=== PATIENT | female | born 1945 | race Caucasian/White ===

== ENCOUNTER → 2021-03-03 | Outpatient (REF) | payer MEDICARE, OTHER ==
[2021-03-03 14:00] LABS: SOURCE, BODY FLUID RT KNEE; SYNOVIAL FLUID COLOR RED (COLORLESS)
[2021-03-03 14:18] LABS: SOURCE, BODY FLUID GLUCOSE RT KNEE
[2021-03-03 14:27] LABS: BODY FLUID RHEUMATOID SCREEN NEGATIVE (NEGATIVE); MUCIN CLOT TEST NO CLOT (4+)
[2021-03-03 14:29] LABS: CRYSTALS, BODY FLUID NONE SEEN (NONE SEEN); SOURCE, BODY FLUID CRYSTALS RT KNEE
== END ==
LOC: M LAB REF 13:11
PROVIDERS: ATTEND Orthopaedic Surgery
DX: M25.461 Effusion, right knee (principal)

== ENCOUNTER 2024-12-07 14:44 | Inpatient (IN) | payer MEDICARE, OTHER ==
[~2024-12-07] VITALS: Ht 154.9 cm; Wt 86.4 kg
[2024-12-07] MEDS ORDERED: LEVO50TA5 PO (15:00)
[2024-12-07] MEDS ORDERED: ALPR0.5T3 PO (15:00)
[2024-12-07] MEDS ORDERED: TRIA75TA10 PO (15:00)
[2024-12-07] MEDS ORDERED: SIMV40TA20 PO (15:00)
[2024-12-07] MEDS ORDERED: POTA-151 PO (15:00)
[2024-12-07] MEDS ORDERED: MECL-86 PO (15:00)
[2024-12-07] MEDS ORDERED: ONDA-282 PO (15:00)
[2024-12-07 15:46] LABS: HEMATOCRIT 44.1 % (36.0-47.0); HEMOGLOBIN 14.7 g/dl (12.0-15.5); MEAN CORPUSCULAR HEMOGLOBIN 30.1 pg (27.0-33.0); MEAN CORPUSCULAR HGB CONC 33.3 g/dl (32.0-36.5); MEAN CORPUSCULAR VOLUME 90.2 fl (80.0-96.0); PLATELET COUNT, AUTOMATED 158 10^3/uL (150-450); RED BLOOD COUNT 4.89 10^6/uL (4.00-5.40); WHITE BLOOD COUNT 9.2 10^3/uL (4.0-10.0)
[2024-12-07 16:12] LABS: CALCIUM LEVEL 9.8 MG/DL (8.3-10.6); CREATININE FOR GFR 0.89 MG/DL (0.55-1.30); GLOMERULAR FILTRATION RATE 65.1 (>32); MAGNESIUM LEVEL 1.7 MG/DL (1.8-2.4); POTASSIUM SERUM 4.3 MMOL/L (3.5-5.1)
[2024-12-07 16:14] LABS: THYROID STIMULATING HORMONE 5.681 uIU/ML (0.55-4.78)
[2024-12-07 16:15] LABS: FREE T4 1.43 NG/DL (0.89-1.76)
[2024-12-07] MEDS ORDERED: hydrALAZINE 20MG/ML 1ML VIAL IV PRN (16:40)
[2024-12-07] MEDS ORDERED: ISOVUE-370 76% 100ML VIAL As Ordered ONE (16:46)
[2024-12-07] MEDS: MAG SULF 1GM/100ML (MAG RUN) 1 GM in IV 1 EA IV ONE (19:43)
[2024-12-07] MEDS ORDERED: HOME MED LIST COMPLETE! XX SCH (20:05)
[2024-12-07 22:09] VITALS: BP 135/60; TEMP 97.9; O2SAT 100
[2024-12-07 22:22] LABS: FOLATE 21.66 NG/ML (>5.4); PHOSPHORUS LEVEL 2.6 MG/DL (2.4-5.1)
[2024-12-08] VITALS (12 sets, daily range): BP systolic 110–172; BP diastolic 53–82; TEMP 97–98.6; O2SAT 93–99
[2024-12-08 06:46] LABS: HEMATOCRIT 40.8 % (36.0-47.0); HEMOGLOBIN 13.7 g/dl (12.0-15.5); MEAN CORPUSCULAR HEMOGLOBIN 30.3 pg (27.0-33.0); MEAN CORPUSCULAR HGB CONC 33.6 g/dl (32.0-36.5); MEAN CORPUSCULAR VOLUME 90.3 fl (80.0-96.0); PLATELET COUNT, AUTOMATED 150 10^3/uL (150-450); RED BLOOD COUNT 4.52 10^6/uL (4.00-5.40); WHITE BLOOD COUNT 8.4 10^3/uL (4.0-10.0)
[2024-12-08 07:21] LABS: CALCIUM LEVEL 9.2 MG/DL (8.3-10.6); CREATININE FOR GFR 0.81 MG/DL (0.55-1.30); GLOMERULAR FILTRATION RATE 72.9 (>32); MAGNESIUM LEVEL 1.8 MG/DL (1.8-2.4); POTASSIUM SERUM 3.7 MMOL/L (3.5-5.1)
[2024-12-08] MEDS: LR 1,000 ML IV SCH (08:06)
[2024-12-08 08:15] LABS: INR 1.01; PROTHROMBIN TIME 13.6 SECONDS (12.5-14.5)
[2024-12-08] MEDS ORDERED: ALPRAZolam 0.5 MG TAB PO PRN (10:00)
[2024-12-08] MEDS: MECLIZINE 25 MG TABLET PO SCH (10:37)
[2024-12-08] MEDS: LEVOTHYROXINE 50MCG TABLET (0.05MG) PO SCH (10:37)
[2024-12-08] MEDS ORDERED: AMIODARONE HCL 360 MG/200 ML PREMIXED BAG (NEXTERONE) As Ordered ONE (13:53)
[2024-12-08] MEDS ORDERED: ISOVUE-300 61% 100ML VIAL As Ordered ONE (13:53)
[2024-12-08] MEDS ORDERED: propofoL 200 MG/20 ML VIAL As Ordered ONE (13:55)
[2024-12-08] MEDS ORDERED: LIDOCAINE 2% 100MG/5ML SDV (FOR ANES.) As Ordered ONE (13:55)
[2024-12-08] MEDS ORDERED: fentaNYL 100 MCG/2 ML INJECTION As Ordered ONE (13:56)
[2024-12-08] MEDS: ceFAZolin SODIUM 2 GM in DEXTROSE 5% (D5W) ADV/MINI-BAG 50 ML IV ONE (14:22)
[2024-12-08] MEDS ORDERED: PHENYLephrine 500MCG 5ML (100MCG/ML) SYRINGE As Ordered ONE (15:37)
[2024-12-08] MEDS ORDERED: ePHEDrine SULFATE 25 MG/5 ML(5MG/ML) SYRINGE As Ordered ONE (15:37)
[2024-12-08] MEDS: LIDOCAINE 1% SDV 30ML VIAL As Ordered ONE (15:50)
[2024-12-08] MEDS ORDERED: HYDROMORPHONE HCL 0.5 MG/ 0.5 ML SYRINGE IV PRN (16:00)
[2024-12-08] MEDS ORDERED: ONDANSETRON 4MG 2ML VIAL IV PRN (16:00)
[2024-12-08] MEDS ORDERED: fentaNYL 100 MCG/2 ML INJECTION IV PRN (16:00)
[2024-12-08] MEDS: oxyCODONE 5MG TAB PO PRN (16:54)
[2024-12-08] MEDS: SIMVASTATIN 40 MG TAB PO SCH (20:35)
[2024-12-08] MEDS: LOSARTAN 50MG TABLET PO SCH (20:36)
[2024-12-08] MEDS: ceFAZolin SOD 1 GM in DEXTROSE 5% (D5W) ADV/MINI-BAG 50 ML IV SCH (22:22)
[2024-12-09] MEDS: ACETAMINOPHEN 325 MG TAB PO ONE (01:00)
[2024-12-09 04:38] VITALS: BP 134/59; TEMP 98.5; O2SAT 94
[2024-12-09 05:33] LABS: BASO % 0.1 % (0.0-1.0); EOS % 0.3 % (0.0-3.0); HEMATOCRIT 41.7 % (36.0-47.0); HEMOGLOBIN 14.1 g/dl (12.0-15.5); LYMPH # 1.9 10^3/uL (1.5-5.0); LYMPH % 18.1 % (24.0-44.0); MEAN CORPUSCULAR HGB CONC 33.8 g/dl (32.0-36.5); MEAN CORPUSCULAR VOLUME 88.7 fl (80.0-96.0); MONO # 0.7 10^3/uL (0.0-0.8); MONO % 6.8 % (2.0-8.0); NEUTROPHILS # 7.6 10^3/uL (1.5-8.5); NEUTROPHILS % 74.4 % (36.0-66.0); PLATELET COUNT, AUTOMATED 142 10^3/uL (150-450); WHITE BLOOD COUNT 10.2 10^3/uL (4.0-10.0)
[2024-12-09] MEDS: LEVOTHYROXINE 75MCG TABLET (0.075MG) PO SCH (05:35)
[2024-12-09 06:07] LABS: CALCIUM LEVEL 8.8 MG/DL (8.3-10.6); CREATININE FOR GFR 0.74 MG/DL (0.55-1.30); GLOMERULAR FILTRATION RATE 81.2 (>32); POTASSIUM SERUM 3.2 MMOL/L (3.5-5.1)
[2024-12-09 07:27] VITALS: BP 105/60; TEMP 97.5; O2SAT 95
[2024-12-09] MEDS: POTASSIUM CHLORIDE 10MEQ SR TABLET PO ONE (07:49)
[2024-12-09 09:00] VITALS: BP 108/60
[2024-12-09 09:03] VITALS: BP 108/60
[2024-12-09] MEDS: ACETAMINOPHEN 325 MG TAB PO PRN (09:05)
[2024-12-09 11:20] VITALS: BP 128/68; TEMP 97.6; O2SAT 98
[2024-12-09] MEDS ORDERED: LEVO75TA4 PO (11:20)
[2024-12-09] MEDS ORDERED: MECL-86 PO (11:20)
[2024-12-09] MEDS ORDERED: ACET32TAB PO (11:20)
[2024-12-09] MEDS ORDERED: EFFE20TA PO (11:20)
[2024-12-09] MEDS ORDERED: LOSA50TA28 PO (12:48)
[2024-12-09] MEDS ORDERED: POTA-298 PO (12:48)
== END 2024-12-09 14:43 | disposition home or self-care (01) | DRG 244 ==
LOC: M ED 14:44 → M ED INP 20:03 → M PCU 22:03
PROVIDERS: ADMIT Student in an Organized Health Care Education/Training Program; ATTEND Student in an Organized Health Care Education/Training Program
PROC: 02HK3JZ Insertion of Pacemaker Lead into Right Ventricle, Percutaneous Approach (ICD-10-PCS; 2024-12-07)
PROC: 02H63JZ Insertion of Pacemaker Lead into Right Atrium, Percutaneous Approach (ICD-10-PCS; 2024-12-08)
PROC: 0JH606Z Insertion of Pacemaker, Dual Chamber into Chest Subcutaneous Tissue and Fascia, Open Approach (ICD-10-PCS; principal; 2024-12-08 12:45)
DX: R00.1 Bradycardia, unspecified (principal); I44.0 Atrioventricular block, first degree; I44.4 Left anterior fascicular block; E03.9 Hypothyroidism, unspecified; I11.9 Hypertensive heart disease without heart failure; H81.10 Benign paroxysmal vertigo, unspecified ear; E78.5 Hyperlipidemia, unspecified; Z68.35 Body mass index [BMI] 35.0-35.9, adult; E83.42 Hypomagnesemia; F41.9 Anxiety disorder, unspecified; Z87.891 Personal history of nicotine dependence

== ENCOUNTER → 2025-02-23 | Outpatient (CLI) | payer MEDICARE, OTHER ==
[~2025-02-23] MED LIST: ACET32TAB PO; ALPR0.5T3 PO; EFFE20TA PO; LEVO50TA5 PO; LEVO75TA4 PO; LOSA50TA28 PO; MECL-86 PO; ONDA-282 PO; POTA-151 PO; POTA-298 PO; SIMV40TA20 PO; TRIA75TA10 PO
== END ==
LOC: M CARPUL 11:19
PROVIDERS: ATTEND Physician Assistant
DX: R94.31 Abnormal electrocardiogram [ECG] [EKG] (principal)